=== PATIENT | female | born 1990 | race Caucasian/White ===

== ENCOUNTER 2018-10-28 07:47 | Inpatient (IN) ==
[2018-10-28] MEDS ORDERED: OXYTOCIN 30 UNITS/500 ML BAG IV PRN ×2 (09:02→09:04)
[2018-10-28] MEDS: LACTATED RINGER'S 1,000 ML IV PRN ×3 (09:34→20:23)
--- NOTE | 2018-10-28 09:40 | History & Physical Report ---
Date of Service October 28, 2018 Assessment & Plan (1) Encounter for induction of labor: IUP at 41 weeks for Induction of labor for post term will begin pitocin induction patient would like epidural analgesia when painful. anticipate vaginal . Present on Admission?: Yes History of Present Illness Primary Care Provider: NO PCP Patient is a 28 yo white female EDC 10/20/18 who presents for IOL because of post term . she ahs been having some tightening but no contractions yet. no bloody show. GBS (-) otherwise complicated by hypothyroidism. Allergies Allergy/AdvReac Type Severity Reaction Status Date / Time No Known Allergies Allergy Unverified 11/21/11 23:20 Home Medications Home Medications Medication Instructions Recorded Confirmed Type PNV cmb#95-ferrous fumarate-FA 1 tab PO DAILY 10/28/18 10/28/18 History [] levothyroxine 25 mcg PO DAILY 10/28/18 10/28/18 History Patient History Medical History History of tooth extraction Hypothyroidism ~2009 diagnosed Kidney stones passed (only once) Family History Grandmother (Maternal) Family history of diabetes mellitus Father Hypertension Mother Hypertension Grandmother (Paternal) Cancer Social History Preferred Language: Tajik Communication Ability: Effective Beliefs That Will Affect Care: None marital status: Current Living Situation: Spouse Other Information That Helps Us Care for You: No Feels Safe at Home: Yes Safety Concerns: Feels Safe At This Time Smoking Status: Never smoker Hx Alcohol Use: No Hx Substance Use: No Review of Systems All systems reviewed & are unremarkable except as noted in HPI & below Physical Exam Constitutional: WD/WN, vitals as above Respiratory: normal respiratory effort, lungs clear to auscultation Cardiovascular: RRR, no murmur, no edema Gastrointestinal (Abdomen): normal bowel sounds, soft, nontender, no hepatosplenomegaly Musculoskeletal: no cyanosis or clubbing, extremities motor strength 5/5 no calf tenderness Genitourinary: OB Exam Abdomen: + vertex, + estimated weight (8-9 pounds) and + regular contractions (every 3 minutes) Manual OB Exam: + cervical dilation 4 cm, + cervical effacement 90% and + station -1 OB Exam Monitor Tracing: + external FHT monitor used, + category I and + normal FHT vari ability Results & Data Vital Signs (Past 12 Hours) Vital Signs Temp Pulse Resp BP 10/28/18 08:56 36.8 C 85 18 140/76
[2018-10-28 09:42] LABS: Hematocrit (blood only) 39.1 % (37-47); Hemoglobin 13.3 g/dL (12.0-16.0); Mean Corpuscular Volume 86.9 fL (80-100); Mean Platelet Volume 9.7 fL (7.4-10.4); Platelet Count 202 K/uL (130-400); RDW Coefficient of Variation 15.5 % (11.5-14.5); RDW Standard Deviation 48.5 fL (36.4-46.3); White Blood Count 10.76 K/uL (4.8-10.8)
[2018-10-28] MEDS ORDERED: BUPIVACAINE 0.25% 30 ML VIAL ONE (14:06)
[2018-10-28] MEDS ORDERED: ePHEDrine sulfate 50 MG/ML AMP ONE (14:06)
[2018-10-28] MEDS ORDERED: fentaNYL citrate 100 MCG/2 ML VIAL ONE (14:07)
[2018-10-28] MEDS ORDERED: fentaNYL 2MCG/ML ROPIV 1.25MG/ML 100 ML BAG EPI ONE (14:07)
[2018-10-28] MEDS ORDERED: ePHEDrine sulfate 50 MG/ML AMP IV PRN (15:13)
[2018-10-28] MEDS ORDERED: NALBUPHINE HCL INJ 10 MG/ML AMP IV PRN (15:13)
[2018-10-28] MEDS ORDERED: NALOXONE HCL 0.4 MG/1 ML VIAL/CARP IV PRN (15:13)
[2018-10-28] MEDS ORDERED: ONDANSETRON INJ 2 MG/ML 2 ML VIAL IV PRN (15:13)
[2018-10-28] MEDS ORDERED: PROMETHAZINE HCL 6.25 MG in SODIUM CHLORIDE 0.9% 50 ML IV PRN (15:13)
[2018-10-28] MEDS ORDERED: NALOXONE HCL 1 MG in SODIUM CHLORIDE 0.9% 1000ML 1,000 ML IV PRN (15:13)
[2018-10-28] MEDS ORDERED: fentaNYL 2MCG/ML ROPIV 1.25MG/ML 100 ML BAG EPI PRN (15:13)
[2018-10-28] MEDS ORDERED: DiphenhydrAMINE HCL 50 MG/ML VIAL IV PRN (15:13)
--- NOTE | 2018-10-28 15:13 | Anesthesiology Consultation ---
Date of Service October 28, 2018 Assessment & Plan (1) Encounter for pre-operative examination: Chart Review Chart Review: Patient NOT seen in Pre Admission Testing and Acceptable Risk for Labor Epidural Consults Requested none ASA ASA2 Proposed Anesthesia Anesthesia Type: Labor Epidural Risk / Benefits Reviewed With: PT / POA / Parent / Guardian, Accepts Plan and Informed Consent Obtained History Height/Weight Height: 5 ft 5 in Weight: 116.573 kg Allergies Allergy/AdvReac Type Severity Reaction Status Date / Time sumatriptan [From Imitrex] AdvReac Gastrointestinal Verified 10/28/18 12:44 Upset Medications Home Medications Medication Instructions Recorded Confirmed Last Taken PNV cmb#95-ferrous fumarate-FA 1 tab PO DAILY 10/28/18 10/28/18 10/27/18 22:00 [] levothyroxine 25 mcg PO DAILY 10/28/18 10/28/18 10/28/18 0130 Active Medications Generic Name Dose Route Start Last Admin Trade Name Freq PRN Reason Stop Dose Admin Lactated Ringer's 1,000 mls @ 125 mls/hr 10/28/18 09:02 10/28/18 14:33 Lr IV 10/30/18 09:01 125 mls/hr .Q8H PRN Infusion L&D Protocol Protocol Oxytocin 30 units in 500 mls @ 7 mls/hr 10/28/18 09:04 10/28/18 12:50 Pitocin IV 10/30/18 09:03 0.42 units/hr .Q24H PRN 7 mls/hr Labor Induction/Augmentation Titration Protocol 0.42 UNITS/HR NPO Date Last Intake of Fluids: 10/28/18 Time Last Intake of Fluids: 13:00 Date Last Intake of Solids: 10/28/18 Time Last Intake of Solids: 06:00 Past Medical History Medical History History of tooth extraction Hypothyroidism ~2009 diagnosed Kidney stones passed (only once) Exercise / Class Metabolic Activity II 4-5 Yardwork/Stairs/Walk up hill Past Family History Family History Grandmother (Maternal) Family history of diabetes mellitus Father Hypertension Mother Hypertension Grandmother (Paternal) Cancer Past Anesthesia History No Hx of Anesthesia Complications and No Family Hx of Anesthesia Complications History of PONV No Hx of PONV and No Hx of Motion Sickness Social History Smoking Status: Never smoker Hx Alcohol Use: No Hx Substance Use: No substance use type: does not use Physical Exam Vital Signs Last Vital Signs Temp 36.8 C 10/28/18 14:45 Pulse 84 10/28/18 15:11 Resp 20 10/28/18 14:45 BP 128/62 10/28/18 15:11 Pulse Ox 97 10/28/18 15:08 ENMT Mouth: no dentition abnormality Thyromental Distance: > or= 3.5 Finger Breadths Mallampati Class: II Neck normal visual inspection Respiratory normal respiratory effort Auscultation: lungs clear to auscultation bilaterally Cardiovascular Rate/Rhythm: regular rate and regular rhythm Psychiatric Orientation: alert Testing Laboratory Results 10/28/18 09:21
--- NOTE | 2018-10-29 04:11 | Anesthesiology Progress Note ---
Date of Service October 29, 2018 Subjective Failed vacuum delivery by OB. Epidural working well. Discussed dosing epidural for planned emergent c section and patient agrees to this plan. Physical Exam Vital Signs: Last Vital Signs Temp 36.8 C 10/28/18 20:59 Pulse 94 H 10/29/18 04:07 Resp 18 10/28/18 22:30 BP 164/67 H 10/29/18 03:55 Pulse Ox 98 10/29/18 04:07 Results & Data Medications Administered Lactated Ringer's (Lr) 1,000 mls @ 125 mls/hr IV .Q8H PRN; Protocol PRN Reason: L&D Protocol Stop: 10/30/18 09:01 Last Admin: 10/28/18 20:23 Dose: 125 mls/hr Documented by: [id number] Infusion: 10/28/18 20:02 Dose: 125 mls/hr Documented by: [id number] Infusion: 10/28/18 19:28 Dose: 125 mls/hr Documented by: [id number] Infusion: 10/28/18 14:33 Dose: 125 mls/hr Documented by: [id number] Admin: 10/28/18 14:14 Dose: 999 mls/hr Documented by: [id number] Infusion: 10/28/18 14:12 Dose: 125 mls/hr Documented by: [id number] Infusion: 10/28/18 10:03 Dose: 125 mls/hr Documented by: [id number] Admin: 10/28/18 09:34 Dose: 999 mls/hr Documented by: [id number] Oxytocin (Pitocin) 30 units in 500 mls @ 20 mls/hr IV .Q24H PRN; Protocol PRN Reason: Labor Induction/Augmentation Stop: 10/30/18 09:03 Last Titration: 10/28/18 21:06 Dose: 1.2 units/hr, 20 mls/hr Documented by: [id number] Titration: 10/28/18 19:45 Dose: 1.14 units/hr, 19 mls/hr Documented by: [id number] Titration: 10/28/18 19:29 Dose: 1.02 units/hr, 17 mls/hr Documented by: [id number] Titration: 10/28/18 19:07 Dose: 1.02 units/hr, 17 mls/hr Documented by: [id number] Titration: 10/28/18 18:20 Dose: 0.9 units/hr, 15 mls/hr Documented by: [id number] Titration: 10/28/18 17:47 Dose: 0.78 units/hr, 13 mls/hr Documented by: [id number] Titration: 10/28/18 17:12 Dose: 0.66 units/hr, 11 mls/hr Documented by: [id number] Titration: 10/28/18 16:34 Dose: 0.54 units/hr, 9 mls/hr Documented by: [id number] Titration: 10/28/18 12:50 Dose: 0.42 units/hr, 7 mls/hr Documented by: [id number] Titration: 10/28/18 11:48 Dose: 0.3 units/hr, 5 mls/hr Documented by: [id number] Titration: 10/28/18 11:12 Dose: 0.18 units/hr, 3 mls/hr Documented by: [id number] Admin: 10/28/18 10:35 Dose: 0.06 units/hr, 1 mls/hr Documented by: [id number] Cosigned by: [id number]
[2018-10-29] MEDS ORDERED: CITRIC ACID/SODIUM CITRATE 15 ML UDC PO ONE (04:15)
[2018-10-29] MEDS ORDERED: CEFAZOLIN 3000MG 65 ML IV ONE (04:15)
[2018-10-29] MEDS ORDERED: LACTATED RINGER'S 1,000 ML IV SCH ×3 (04:15→06:00)
[2018-10-29] MEDS ORDERED: MoRPHine SULFATE PF 1 MG/ML 10 ML AMP/VIAL ONE (04:47)
[2018-10-29] MEDS ORDERED: OXYTOCIN 10 UNITS/ML VIAL ONE (04:59)
[2018-10-29] MEDS ORDERED: CEFAZOLIN 250 MG/ML 1 GM VIAL ONE (04:59)
[2018-10-29] MEDS ORDERED: KETOROLAC 30 MG/ML VIAL ONE (04:59)
[2018-10-29 05:16] LABS: Base Excess Cord Arterial Bld -4.5 mEq/L (-9-1.8); CO2 Cord Arterial Blood 51 mmHg (39.1-73.5); Cord Venous Blood HCO3 21 mmol/L (18.4-26.8); Cord Venous Blood PCO2 43 mmHg (30.4-57.2); Cord Venous Blood PO2 20 mmHg (14.1-43.3); Cord Venous Blood pH 7.31 (7.20-7.44); HCO3 Cord Arterial Blood 23 mmol/L (19.7-28.5); pH Cord Arterial Blood 7.27 (7.1-7.38)
[2018-10-29 05:17] LABS: Oxygen Sat Cord Arterial Blood < 60.0 % (<60)
[2018-10-29 05:18] LABS: O2 Saturation Cord Venous Bld < 60.0 % (<68)
[2018-10-29] MEDS ORDERED: ONDANSETRON INJ 2 MG/ML 2 ML VIAL ONE (05:25)
--- NOTE | 2018-10-29 05:38 | Post Operative Brief Note ---
Immediate Post Op Note v1 Date of Surgery October 29, 2018 Pre & Post Diagnosis Operation Date: 10/29/18 04:15 Pre-Op Diagnosis: Arrest of descent, Failed Vacuum Post-Op Diagnosis: same as preop- delivery of viable male 9 lbs 15 ozs Procedure Operation Date: 10/29/18 04:15 Actual Procedures p Section in LD - Anh Anderson MD, FACOG Surgeon Anh Anderson MD, FACOG Master In [employer] Sara Alvarado RN Estimated Blood Loss 500 Findings Consistent with Post-Op Diagnosis
[2018-10-29] MEDS: OXYTOCIN 20 UNITS in LACTATED RINGER'S 1,000 ML IV SCH ×3 (05:50→19:56)
[2018-10-29] MEDS ORDERED: MAGNESIUM HYDROXIDE SUSP 30 ML UDC PO PRN (05:55)
[2018-10-29] MEDS ORDERED: ONDANSETRON INJ 2 MG/ML 2 ML VIAL IV PRN ×2 (05:55→23:54)
[2018-10-29] MEDS ORDERED: MoRPHine SULFATE PF 1 MG/ML 10 ML AMP/VIAL INT SPINAL ONE (05:55)
[2018-10-29] MEDS ORDERED: DIPHTHERIA/TETANUS/PERTUSSIS 0.5 ML SYR/VIAL IM ONE (05:55)
[2018-10-29] MEDS ORDERED: DiphenhydrAMINE HCL 50 MG/ML VIAL IV PRN ×3 (05:55→23:55)
[2018-10-29] MEDS ORDERED: PROMETHAZINE HCL 6.25 MG in SODIUM CHLORIDE 0.9% 50 ML IV PRN (05:55)
[2018-10-29] MEDS ORDERED: HYDROCORTISONE ACETATE 25 MG SUPP PR PRN (05:55)
[2018-10-29] MEDS ORDERED: HYDROmorphone INJ 0.5 MG/0.5 ML SYR IV PRN (05:55)
[2018-10-29] MEDS ORDERED: LACTATED RINGER'S 500 ML IV PRN (05:55)
[2018-10-29] MEDS ORDERED: SUPERCREAM 0.870% 15 GM JAR EXT PRN (05:55)
[2018-10-29] MEDS ORDERED: SENNA 8.6 MG TAB PO PRN (05:55)
[2018-10-29] MEDS ORDERED: MoRPHine SULFATE 2 MG/ML CARP IV PRN (05:55)
[2018-10-29] MEDS ORDERED: NALOXONE HCL 0.4 MG/1 ML VIAL/CARP IV PRN (05:55)
[2018-10-29] MEDS ORDERED: ePHEDrine sulfate 50 MG/ML AMP IV PRN (05:55)
[2018-10-29] MEDS ORDERED: NALOXONE HCL 0.08 MG in SYRINGE 1.8 ML IV PRN (05:55)
[2018-10-29] MEDS ORDERED: NALOXONE HCL 1 MG in SODIUM CHLORIDE 0.9% 1000ML 1,000 ML IV PRN (05:55)
[2018-10-29] MEDS ORDERED: NALBUPHINE HCL INJ 10 MG/ML AMP IV PRN (05:55)
[2018-10-29] MEDS ORDERED: MEPERIDINE HCL 25 MG/ML CARP IV PRN (05:55)
[2018-10-29] MEDS ORDERED: BENZOCAINE 20% AER SPR 82.5 GM CAN EXT PRN (05:55)
[2018-10-29] MEDS ORDERED: KETOROLAC 30 MG/ML VIAL IV PRN ×2 (05:55→23:54)
--- NOTE | 2018-10-29 05:57 | Anesthesiology Progress Note ---
Date of Service October 29, 2018 Anesthesia Post Procedure Vital Signs Vital Signs: Temp Pulse Resp BP Pulse Ox 10/29/18 05:53 80 96 10/29/18 05:51 81 118/58 L 10/29/18 05:48 80 95 10/29/18 05:46 84 121/57 L 10/29/18 04:12 95 H 97 10/29/18 04:09 89 142/67 H 10/29/18 04:07 94 H 98 10/29/18 04:02 95 H 98 10/29/18 03:57 103 H 98 10/29/18 03:55 109 H 164/67 H 10/29/18 03:52 111 H 98 10/29/18 03:47 89 98 10/29/18 03:42 97 H 174/128 H 97 10/29/18 03:39 106 H 158/76 H 10/29/18 03:37 115 H 97 10/29/18 03:35 18 10/29/18 03:32 87 97 10/29/18 03:27 88 97 10/29/18 03:26 85 159/74 H 10/29/18 03:22 98 H 97 10/29/18 03:17 133 H 98 10/29/18 03:12 78 97 10/29/18 03:10 95 H 157/89 H 10/29/18 03:07 83 97 10/29/18 03:02 83 97 10/29/18 02:57 141 H 97 10/29/18 02:55 100 H 188/91 H 10/29/18 02:52 102 H 98 10/29/18 02:47 97 H 97 10/29/18 02:42 118 H 97 10/29/18 02:40 111 H 167/80 H 10/29/18 02:37 97 H 97 10/29/18 02:32 115 H 97 10/29/18 02:30 37.2 C 18 10/29/18 02:27 95 H 97 10/29/18 02:25 100 H 121/70 10/29/18 02:22 113 H 97 10/29/18 02:17 119 H 97 10/29/18 02:12 149 H 98 10/29/18 02:11 107 H 161/72 H 10/29/18 02:10 110 H 91 10/29/18 02:07 158 H 98 10/29/18 02:02 101 H 99 10/29/18 01:57 142 H 98 10/29/18 01:55 133 H 148/82 H 10/29/18 01:52 137 H 96 10/29/18 01:40 131 H 115/77 10/29/18 01:35 89 98 10/29/18 01:30 85 99 10/29/18 01:25 95 H 99 10/29/18 01:24 96 H 133/68 10/29/18 01:20 139 H 99 10/29/18 01:15 106 H 98 10/29/18 01:11 80 137/67 10/29/18 01:10 86 98 10/29/18 01:05 78 98 10/29/18 01:00 37.8 C H 76 18 98 10/29/18 00:57 89 136/63 10/29/18 00:55 99 H 98 10/29/18 00:50 86 96 10/29/18 00:45 86 96 10/29/18 00:40 137 H 96 10/29/18 00:39 86 142/78 H 10/29/18 00:35 107 H 96 10/29/18 00:30 111 H 97 10/29/18 00:25 123 H 143/78 H 97 10/29/18 00:20 95 H 94 10/29/18 00:15 105 H 95 10/29/18 00:12 95 H 94 10/29/18 00:10 97 H 95 10/29/18 00:09 97 H 135/73 10/29/18 00:05 93 H 95 10/29/18 00:00 100 H 96 10/28/18 23:58 93 H 94 10/28/18 23:55 104 H 136/75 95 10/28/18 23:50 92 H 95 10/28/18 23:45 92 H 94 10/28/18 23:40 93 H 128/67 97 10/28/18 23:35 89 96 10/28/18 23:30 92 H 95 10/28/18 23:25 89 97 10/28/18 23:24 95 H 134/73 10/28/18 23:20 86 95 10/28/18 23:15 84 96 10/28/18 23:10 90 139/72 97 10/28/18 23:05 85 97 10/28/18 23:00 37.5 C 87 18 96 10/28/18 22:56 90 141/73 H 10/28/18 22:55 91 H 97 10/28/18 22:50 87 96 10/28/18 22:45 84 97 10/28/18 22:40 91 H 132/72 96 10/28/18 22:35 88 96 10/28/18 22:30 118 H 18 97 10/28/18 22:25 84 137/72 96 10/28/18 22:20 78 95 10/28/18 22:19 83 94 10/28/18 22:15 85 96 10/28/18 22:10 80 131/71 96 10/28/18 22:05 88 96 10/28/18 22:00 91 H 96 10/28/18 21:55 84 95 10/28/18 21:54 90 131/72 10/28/18 21:50 88 95 10/28/18 21:45 83 18 94 10/28/18 21:44 81 96 10/28/18 21:40 90 129/74 10/28/18 21:39 85 96 10/28/18 21:34 84 96 10/28/18 21:29 90 96 10/28/18 21:24 91 H 132/75 96 10/28/18 21:19 86 96 10/28/18 21:14 88 96 10/28/18 21:09 90 125/71 96 10/28/18 21:04 93 H 96 10/28/18 20:59 36.8 C 93 H 18 95 10/28/18 20:55 99 H 132/75 10/28/18 20:54 104 H 98 10/28/18 20:49 104 H 97 10/28/18 20:44 103 H 97 10/28/18 20:40 103 H 131/72 10/28/18 20:39 105 H 96 10/28/18 20:34 105 H 96 10/28/18 20:33 111 H 94 10/28/18 20:29 100 H 95 10/28/18 20:28 99 H 94 10/28/18 20:24 107 H 96 10/28/18 20:19 114 H 96 10/28/18 20:14 102 H 95 10/28/18 20:11 99 H 101/60 94 10/28/18 20:08 100 H 95 10/28/18 20:05 108 H 94 10/28/18 20:03 105 H 95 10/28/18 19:59 18 10/28/18 19:58 97 H 95 10/28/18 19:55 99 H 118/59 L 10/28/18 19:53 102 H 95 10/28/18 19:48 93 H 95 10/28/18 19:43 99 H 95 10/28/18 19:40 94 H 110/58 L 10/28/18 19:38 98 H 95 10/28/18 19:33 87 95 10/28/18 19:28 89 96 10/28/18 19:25 96 H 113/63 10/28/18 19:23 93 H 96 10/28/18 19:18 95 H 96 10/28/18 19:15 36.4 C L 18 10/28/18 19:13 98 H 97 10/28/18 19:08 94 H 96 10/28/18 19:03 99 H 97 10/28/18 18:58 102 H 97 10/28/18 18:54 98 H 108/62 10/28/18 18:53 98 H 97 10/28/18 18:48 95 H 96 10/28/18 18:43 93 H 96 10/28/18 18:39 98 H 105/65 10/28/18 18:38 93 H 96 10/28/18 18:33 100 H 97 10/28/18 18:29 84 94 10/28/18 18:28 82 94 10/28/18 18:25 85 106/59 L 10/28/18 18:23 80 95 10/28/18 18:18 85 96 10/28/18 18:13 89 96 10/28/18 18:09 82 104/59 L 10/28/18 18:08 81 96 10/28/18 18:03 90 96 10/28/18 17:58 84 97 10/28/18 17:55 83 113/57 L 10/28/18 17:53 79 97 10/28/18 17:49 37.1 C 18 10/28/18 17:48 76 98 10/28/18 17:43 78 97 07/03/19 17:40 72 128/68 10/28/18 17:38 76 97 10/28/18 17:33 74 97 10/28/18 17:28 75 97 10/28/18 17:25 79 125/67 10/28/18 17:23 81 96 07 17:18 81 96 10/28/18 17:13 74 97 10/28/18 17:10 76 130/68 10/28/18 17:08 90 97 10/28/18 17:03 78 96 10/28/18 16:58 80 97 10/28/18 16:54 78 135/74 10/28/18 16:53 73 97 10/28/18 16:48 78 97 10/28/18 16:43 79 98 10/28/18 16:40 82 141/83 H 10/28/18 16:38 83 98 10/28/18 16:35 37.0 C 18 10/28/18 16:33 74 98 10/28/18 16:28 90 97 10/28/18 16:25 76 128/68 10/28/18 16:23 83 97 10/28/18 16:18 78 95 10/28/18 16:16 73 94 10/28/18 16:13 73 95 10/28/18 16:11 68 125/62 10/28/18 16:08 73 95 10/28/18 16:03 82 96 10/28/18 15:58 72 96 10/28/18 15:55 78 126/66 10/28/18 15:53 82 97 10/28/18 15:48 78 97 10/28/18 15:43 85 96 10/28/18 15:39 76 130/67 10/28/18 15:38 77 97 10/28/18 15:33 79 97 10/28/18 15:28 84 96 10/28/18 15:23 80 131/63 98 03 15:21 80 132/62 03 15:19 81 124/61 10/28/18 15:18 79 96 10/28/18 15:17 85 129/66 10/28/18 15:15 81 129/64 10/28/18 15:13 79 128/63 97 10/28/18 15:11 84 128/62 10/28/18 15:09 83 126/62 07/03/19 15:08 80 97 10/28/18 15:07 82 137/67 10/28/18 15:05 85 136/66 10/28/18 15:03 80 130/64 98 10/28/18 15:01 77 143/63 H 10/28/18 14:59 95 H 155/78 H 10/28/18 14:58 93 H 98 10/28/18 14:53 94 H 99 10/28/18 14:48 87 99 10/28/18 14:45 36.8 C 92 H 20 145/75 H 10/28/18 14:43 92 H 99 10/28/18 14:38 80 97 10/28/18 14:33 85 99 10/28/18 14:28 87 99 10/28/18 12:52 36.9 C 78 20 139/70 10/28/18 11:53 36.9 C 77 18 135/73 10/28/18 11:13 36.8 C 18 10/28/18 11:09 77 138/81 10/28/18 10:39 36.8 C 18 10/28/18 10:34 80 138/76 10/28/18 08:56 36.8 C 85 18 140/76 Transfer of Care Handoff Completed per policy Notes Mental Status: alert / awake / arousable Patient Amnestic to Procedure: Yes Nausea / Vomiting: adequately controlled Pain: adequately controlled Airway Patency, RR, SpO2: stable & adequate BP & HR: stable & adequate Hydration State: stable & adequate Neuraxial Anesthesia: was administered and sensory block is resolving Anesthetic Complications: no major complications apparent and Pt Satisfied with anesthetic care
--- NOTE | 2018-10-29 05:57 | Anesthesia Procedure Note ---
Date of Service October 29, 2018 Anesthesia Post Epidural Note Vital Signs Vital Signs: Temp Pulse Resp BP Pulse Ox 37.2 C 80 18 118/58 L 96 10/29/18 02:30 10/29/18 05:53 10/29/18 03:35 10/29/18 05:51 10/29/18 05:53 Notes Mental Status: alert / awake / arousable Nausea / Vomiting: adequately controlled Pain: adequately controlled Airway Patency, RR, SpO2: stable & adequate BP & HR: stable & adequate Hydration State: stable & adequate Neuraxial Anesthesia: was administered and sensory block is resolving Anesthetic Complications: no major complications apparent and Pt Satisfied with anesthetic care Epidural: Removed without complications and With tip intact
[2018-10-29] MEDS ORDERED: ACETAMINOPHEN 325 MG TAB PO PRN (05:59)
[2018-10-29] MEDS ORDERED: SODIUM CHLORIDE 0.9% 1000ML 1,000 ML IV SCH (06:00)
[2018-10-29] MEDS ORDERED: DC INTRASPINAL MORPHINE SCH (06:00)
[2018-10-29] MEDS ORDERED: NO NARCOTICS OR SEDATIVES SCH (06:00)
[2018-10-29] MEDS: LEVOTHYROXINE SODIUM 25 MCG TABLET PO SCH (07:15)
--- NOTE | 2018-10-29 07:25 | Operative Report ---
DATE OF OPERATION: 10/29/2018 SURGEON: Anh Harrison MD FLARE MAN: Sara Alvarado RN PREOPERATIVE DIAGNOSES: Intrauterine at 41 weeks for induction of labor, arrest of descent and failed vacuum. POSTOPERATIVE DIAGNOSES: Intrauterine at 41 weeks for induction of labor, arrest of descent and failed vacuum, delivery of a viable male infant, 9 pounds 15 ounces. PROCEDURE: Primary low transverse section. ANESTHESIA: Epidural. BLOOD LOSS: 500 mL. HISTORY: The patient is a 28-year-old G1, P0 white female, EDC of 10/20/2018 who presented for induction of labor because of post-term . She was 4 cm on arrival in labor and delivery and then spontaneously ruptured membranes as well. Pitocin augmentation of her labor was begun. An IUPC was placed to further gauge the strength of her contractions. She did progress to full dilation and pushed through exhaustion over 3 hours and brought the vertex to +2 present and then to +3 station with caput. A vacuum was attempted through 4 contractions with 3 pop-offs. The vertex did not descend any further with the vacuum attempt and a decision was made to proceed with a primary section instead because of arrest of descent. The patient and her were agreeable to this and all questions were answered to their satisfaction before proceeding. GROSS FINDINGS: Uterus is gravid and consistent with a term in size. Bilateral ovaries and fallopian tubes are grossly normal. The presenting part was in an OA presentation with significant molding. DESCRIPTION OF PROCEDURE: After the patient received adequate epidural anesthesia, she was prepped and draped in usual sterile fashion. A low transverse skin incision was made with the scalpel and carried to the fascia with the same scalpel. The fascial incision was then extended with Jackson scissors. The underlying rectus muscles were divided along the midline bluntly and the underlying peritoneum elevated and entered bluntly. The bladder was then taken down off the anterior surface of the uterus and placed behind the bladder blade. The low uterine segment was entered with the scalpel and extended transversely. There was thick meconium upon entering the uterine cavity. The was delivered from the vertex presentation and brought to the incision before moderate fundal pressure was used to deliver the rest of the . The cord was clamped and cut. The was handed off to Dr. Merida who was in attendance as wafer polishing lead worker. There was vigorous crying and the infant was moving all 4 limbs at that point. The placenta was then manually removed and the uterus exteriorized and covered with a clean lap sponge. The uterine cavity was explored and found to be free of any placental tissue or membranes. The uterus was closed in 2 layers in a running locking imbricating fashion. Hemostasis was noted to be excellent at the incision. The posterior cul-de-sac was irrigated with normal saline as was the anterior cul-de-sac. The uterus was then placed back in the abdominal cavity. The gutters were explored and found to be free of any clot or fluid. The incision was examined once more and continued to have excellent hemostasis. The rectus muscles were brought together on the midline with individual stitches of 0 Monocryl. The fascia was closed in a running fashion with 0 Vicryl. Skin edges were reapproximated using a 4-0 Vicryl in a subcuticular fashion. The adipose layer was irrigated prior to closing the skin. Urine was concentrated, but clear at the end of the case. Mother and are doing well after the delivery. I attest to the content of the Intraoperative Record and any orders documented therein. Any exception s are noted below.
[2018-10-29] MEDS ORDERED: LACTATED RINGER'S 500 ML IV ONE (08:11)
[2018-10-29] MEDS: SIMETHICONE 80 MG CHEW PO SCH ×2 (17:16→20:29)
[2018-10-29] MEDS: DOCUSATE SODIUM 100 MG CAP PO SCH (20:28)
[2018-10-29] MEDS ORDERED: MEPERIDINE HCL 50 MG/ML CARP IV PRN (23:54)
[2018-10-29] MEDS ORDERED: ZOLPIDEM TARTRATE 5 MG TAB PO PRN (23:54)
[2018-10-29] MEDS ORDERED: PROMETHAZINE HCL 25 MG in SODIUM CHLORIDE 0.9% 50 ML IV PRN (23:54)
[2018-10-30] MEDS: LEVOTHYROXINE SODIUM 25 MCG TABLET PO SCH (06:25)
--- NOTE | 2018-10-30 07:20 | Anesthesiology Progress Note ---
Date of Service October 30, 2018 Anesthesia Post Procedure Vital Signs Vital Signs: Temp Pulse Pulse Pulse Resp BP BP 10/30/18 03:50 36.7 C 80 20 106/66 10/30/18 02:25 20 10/30/18 01:22 20 10/30/18 00:05 20 10/29/18 23:50 36.9 C 87 20 116/71 10/29/18 23:15 18 10/29/18 22:15 16 10/29/18 21:15 16 10/29/18 20:15 17 10/29/18 20:05 36.9 C 100 H 17 119/70 10/29/18 19:15 15 10/29/18 18:15 17 10/29/18 17:15 15 10/29/18 17:00 36.7 C 98 H 16 120/72 10/29/18 16:15 16 10/29/18 15:15 15 10/29/18 14:15 18 10/29/18 13:15 18 10/29/18 12:01 37.0 C 20 10/29/18 12:00 36.9 C 110 H 18 111/66 10/29/18 11:44 108 H 131/61 10/29/18 11:43 111 H 10/29/18 11:38 115 H 10/29/18 11:33 116 H 10/29/18 11:28 112 H 10/29/18 11:23 108 H 10/29/18 11:18 112 H 10/29/18 11:13 124 H 10/29/18 11:08 117 H 10/29/18 11:03 119 H 10/29/18 10:58 112 H 10/29/18 10:53 127 H 10/29/18 10:50 20 10/29/18 10:48 117 H 10/29/18 10:43 116 H 10/29/18 10:38 115 H 10/29/18 10:33 112 H 10/29/18 10:28 97 H 10/29/18 10:23 121 H 10/29/18 10:18 106 H 10/29/18 10:13 99 H 10/29/18 10:08 99 H 10/29/18 10:03 92 H 10/29/18 09:58 112 H 10/29/18 09:55 92 H 10/29/18 09:53 103 H 10/29/18 09:50 36.9 C 20 10/29/18 09:49 97 H 10/29/18 09:48 98 H 10/29/18 09:43 105 H 10/29/18 09:38 105 H 10/29/18 09:33 98 H 10/29/18 09:28 102 H 131/68 10/29/18 09:23 95 H 10/29/18 09:20 96 H 10/29/18 09:18 99 H 10/29/18 09:13 98 H 10/29/18 09:08 108 H 10/29/18 09:03 114 H 10/29/18 08:58 107 H 10/29/18 08:53 108 H 10/29/18 08:49 113 H 141/76 H 10/29/18 08:48 115 H 10/29/18 08:45 108 H 10/29/18 08:43 107 H 10/29/18 08:40 79 10/29/18 08:38 76 10/29/18 08:35 77 10/29/18 08:33 82 10/29/18 08:29 79 10/29/18 08:28 76 10/29/18 08:23 75 10/29/18 08:18 86 10/29/18 08:13 84 10/29/18 08:08 86 10/29/18 08:03 92 H 10/29/18 08:02 86 133/59 L 10/29/18 07:58 87 10/29/18 07:53 84 10/29/18 07:52 82 132/62 10/29/18 07:50 36.6 C 20 10/29/18 07:48 88 10/29/18 07:43 103 H 10/29/18 07:42 105 H 144/69 H 10/29/18 07:39 92 H 10/29/18 07:38 96 H 10/29/18 07:33 84 10/29/18 07:32 86 122/56 L 10/29/18 07:28 97 H 10/29/18 07:23 87 10/29/18 07:22 88 131/63 10/29/18 07:20 20 Pulse Ox 10/30/18 03:50 96 10/30/18 02:25 97 10/30/18 01:22 93 10/30/18 00:05 93 10/29/18 23:50 93 10/29/18 23:15 94 10/29/18 22:15 100 10/29/18 21:15 99 10/29/18 20:15 97 10/29/18 20:05 95 10/29/18 19:15 98 10/29/18 18:15 99 10/29/18 17:15 97 10/29/18 17:00 98 10/29/18 16:15 98 10/29/18 15:15 99 10/29/18 14:15 93 10/29/18 13:15 93 10/29/18 12:01 10/29/18 12:00 94 10/29/18 11:44 10/29/18 11:43 95 10/29/18 11:38 95 10/29/18 11:33 95 10/29/18 11:28 95 10/29/18 11:23 95 10/29/18 11:18 94 10/29/18 11:13 96 10/29/18 11:08 95 10/29/18 11:03 94 10/29/18 10:58 95 10/29/18 10:53 10/29/18 10:50 10/29/18 10:48 95 10/29/18 10:43 95 10/29/18 10:38 95 10/29/18 10:33 96 10/29/18 10:28 96 10/29/18 10:23 96 10/29/18 10:18 95 10/29/18 10:13 95 10/29/18 10:08 95 10/29/18 10:03 95 10/29/18 09:58 93 10/29/18 09:55 94 10/29/18 09:53 95 10/29/18 09:50 10/29/18 09:49 94 10/29/18 09:48 95 10/29/18 09:43 94 10/29/18 09:38 94 10/29/18 09:33 94 10/29/18 09:28 94 10/29/18 09:23 94 10/29/18 09:20 94 10/29/18 09:18 96 10/29/18 09:13 94 10/29/18 09:08 95 10/29/18 09:03 96 10/29/18 08:58 95 10/29/18 08:53 96 10/29/18 08:49 10/29/18 08:48 96 10/29/18 08:45 94 10/29/18 08:43 97 10/29/18 08:40 94 10/29/18 08:38 95 10/29/18 08:35 94 10/29/18 08:33 94 10/29/18 08:29 94 10/29/18 08:28 95 10/29/18 08:23 95 10/29/18 08:18 96 10/29/18 08:13 96 10/29/18 08:08 96 10/29/18 08:03 97 10/29/18 08:02 10/29/18 07:58 94 10/29/18 07:53 96 10/29/18 07:52 10/29/18 07:50 10/29/18 07:48 96 10/29/18 07:43 95 10/29/18 07:42 10/29/18 07:39 94 10/29/18 07:38 98 10/29/18 07:33 96 10/29/18 07:32 10/29/18 07:28 96 10/29/18 07:23 96 10/29/18 07:22 10/29/18 07:20 Pain Intensity Bilateral Abdomen: Pain Intensity: 2 Transfer of Care Handoff Completed per policy Notes Mental Status: alert / awake / arousable Patient Amnestic to Procedure: Yes Nausea / Vomiting: adequately controlled Pain: adequately controlled Airway Patency, RR, SpO2: stable & adequate BP & HR: stable & adequate Hydration State: stable & adequate Neuraxial Anesthesia: was administered and sensory block resolved Anesthetic Complications: no major complications apparent and Pt Satisfied with anesthetic care
[2018-10-30 07:42] LABS: Basophils # (auto) 0.01 K/uL (0-0.2); Basophils % (auto) 0.1 %; Eosinophils # (auto) 0.08 K/uL (0-0.5); Eosinophils % (auto) 0.5 %; Hematocrit (blood only) 30.9 % (37-47); Hemoglobin 10.6 g/dL (12.0-16.0); Immature Granulocytes # (auto) 0.18 K/uL (0.00-0.02); Immature Granulocytes % (auto) 1.2 %; Lymphocytes # (auto) 1.31 K/uL (1.2-3.4); Lymphocytes % (auto) 8.9 %; Mean Corpuscular Hgb Conc 34.3 g/dL (32-36); Mean Corpuscular Volume 87.3 fL (80-100); Mean Platelet Volume 9.1 fL (7.4-10.4); Monocytes # (auto) 1.03 K/uL (0.11-0.59); Neutrophils # (auto) 12.03 K/uL (1.4-6.5); Neutrophils % (auto) 82.3 %; Platelet Count 194 K/uL (130-400); RDW Coefficient of Variation 15.9 % (11.5-14.5); RDW Standard Deviation 50.5 fL (36.4-46.3); Red Blood Count 3.54 M/uL (4.2-5.4); White Blood Count 14.64 K/uL (4.8-10.8)
--- NOTE | 2018-10-30 08:20 | Obstetrical Progress Note ---
Date of Service October 30, 2018 Assessment & Plan (1) Delivery by section: routine pp care. eating regular diet, await spont void. pain meds. will ambulate in halls. hgb noted at 10. follow bleeding. Subjective doing well this am, +flatus, no n/v, no sob/cp. . pain well controlled. Physical Exam Constitutional: WD/WN, vitals as above Respiratory: normal respiratory effort, lungs clear to auscultation Cardiovascular: Rate/Rhythm: regular rate and regular rhythm Gastrointestinal (Abdomen): soft ff 2 down, appropriately tender. incision c/d/i Musculoskeletal: nt calves Neurologic: grossly normal. Results & Data Vital Signs (Past 12 Hours) Vital Signs Temp Pulse Resp BP Pulse Ox 10/30/18 03:50 36.7 C 80 20 106/66 96 10/30/18 02:25 20 97 10/30/18 01:22 20 93 10/30/18 00:05 20 93 10/29/18 23:50 36.9 C 87 20 116/71 93 10/29/18 23:15 18 94 10/29/18 22:15 16 100 10/29/18 21:15 16 99
[2018-10-30] MEDS: DOCUSATE SODIUM 100 MG CAP PO SCH ×2 (08:44→20:05)
[2018-10-30] MEDS: SIMETHICONE 80 MG CHEW PO SCH ×3 (08:44→20:06)
[2018-10-30] MEDS: FERROUS SULFATE 325 MG TAB PO SCH (08:44)
[2018-10-30] MEDS: PRENATAL VITAMIN 1 TAB PO SCH (08:45)
[2018-10-30] MEDS: OXYCODONE/ACETAMINOPHEN 5mg/325mg TAB PO PRN ×3 (08:45→20:06)
[2018-10-30] MEDS ORDERED: Nursing to Pharmacy Communication ONE (17:56)
[2018-10-30] MEDS ORDERED: BISACODYL 5 MG TABEC PO SCH (20:00)
[2018-10-30] MEDS: IBUPROFEN 600 MG TAB PO PRN (20:06)
[2018-10-31] MEDS: IBUPROFEN 600 MG TAB PO PRN ×6 (00:33→20:13)
[2018-10-31] MEDS: OXYCODONE/ACETAMINOPHEN 5mg/325mg TAB PO PRN ×6 (00:34→20:14)
[2018-10-31] MEDS: LEVOTHYROXINE SODIUM 25 MCG TABLET PO SCH (04:48)
[2018-10-31] MEDS ORDERED: BISACODYL 10 MG SUPP PR PRN (05:55)
[2018-10-31 06:31] LABS: Hemoglobin 9.4 g/dL (12.0-16.0)
--- NOTE | 2018-10-31 06:52 | Obstetrical Progress Note ---
Date of Service October 31, 2018 Assessment & Plan (1) Delivery by section: routine postop care Present on Admission?: No Subjective Ambulation: ambulating normally Voiding: no voiding problems Passing Gas:: Yes Diet Tolerance:: regular diet Lochia:: Small Feeding Type:: breast feeding Current Pain Level(1-10): 0 Physical Exam Constitutional WD/WN, vitals as above Eyes PERRL, conjunctivae normal, anicteric sclerae ENMT external ear and nose normal, oropharynx normal Neck trachea midline, no thyromegaly Respiratory normal respiratory effort and able to speak in complete sentences; no respiratory distress, no labored breathing and does not use accessory muscles Cardiovascular Rate/Rhythm: regular rate and regular rhythm Extremities: no calf tenderness and no pedal edema Chest (Breasts) Breast: normal inspection of breasts Gastrointestinal (Abdomen) Inspection/Auscultation: abdomen normal to inspection and + abdominal surgical incision (C/d/i); abdomen not distended Musculoskeletal no cyanosis or clubbing, extremities motor strength 5/5 Skin no rashes, warm and dry Neurologic patellar DTR's 2+ bilat, sensation intact Psychiatric A+Ox3, euthymic affect Genitourinary Speculum/Bimanual Exam: uterus nontender OB Exam Abdomen: + fundal height (at umbilicus) Fundus: + firm Results & Data Vital Signs (Past 12 Hours) Vital Signs Temp Pulse Resp BP Pulse Ox 10/30/18 22:45 36.6 C 92 H 16 127/73 96 10/30/18 20:00 36.7 C 115 H 16 114/74 94
[2018-10-31] MEDS: DOCUSATE SODIUM 100 MG CAP PO SCH ×3 (08:27→20:13)
[2018-10-31] MEDS: SIMETHICONE 80 MG CHEW PO SCH ×6 (08:28→20:13)
[2018-10-31] MEDS: FERROUS SULFATE 325 MG TAB PO SCH ×2 (08:28→08:32)
[2018-10-31] MEDS: PRENATAL VITAMIN 1 TAB PO SCH ×2 (08:28→08:32)
[2018-11-01] MEDS: IBUPROFEN 600 MG TAB PO PRN ×2 (02:45→08:34)
[2018-11-01] MEDS: OXYCODONE/ACETAMINOPHEN 5mg/325mg TAB PO PRN ×2 (02:45→08:34)
[2018-11-01] MEDS: LEVOTHYROXINE SODIUM 25 MCG TABLET PO SCH (04:02)
[2018-11-01] MEDS: SIMETHICONE 80 MG CHEW PO SCH (08:28)
[2018-11-01] MEDS: FERROUS SULFATE 325 MG TAB PO SCH (08:28)
[2018-11-01] MEDS: PRENATAL VITAMIN 1 TAB PO SCH (08:28)
[2018-11-01] MEDS: DOCUSATE SODIUM 100 MG CAP PO SCH (08:28)
--- NOTE | 2018-11-01 08:59 | Obstetrical Progress Note ---
Date of Service November 01, 2018 Postop day #3 from section patient is well ambulating well having no extremity pain tolerating oral diet and pain is well controlled with oral pain medication Assessment & Plan (1) Delivery by section: Postoperative day #3 meets criteria will discharge home pain medication will include Percocet and Motrin follow-up in the office instructions reviewed Physical Exam Patient appears well abdomen is soft nontender incision is clean dry and intact extremity exam is negative Results & Data Vital Signs (Past 12 Hours) Vital Signs Temp Pulse Resp BP Pulse Ox 11/01/18 07:19 36.8 C 82 16 142/81 H 10/31/18 23:15 36.4 C L 83 16 118/75 96
--- NOTE | 2018-11-03 01:00 | Discharge Summary ---
PRINCIPAL DIAGNOSIS: Intrauterine at 41 weeks, failed induction of labor, failed vacuum. PRINCIPAL PROCEDURE: Primary low transverse section. HISTORY AND HOSPITAL COURSE: The patient is a 28-year-old G1, P0 white female, EDC of 10/20/2018, who presented for induction of labor because of post-term . She was 4 cm on arrival. Pitocin augmentation was begun. She ruptured membranes spontaneously despite progressing to full dilation and pushing for over 3 hours and an attempt at vacuum assisted delivery was unsuccessful. We proceeded to primary low transverse section for delivery of a viable male , 9 pounds 15 ounces. Her postop course was uncomplicated. She was eating regular diet on her 1st postop day. She remained afebrile throughout her hospital stay, was ambulating without difficulty and voiding without difficulty. Her pain was well controlled with oral pain medication. Hemoglobin on admission was 13.3, hematocrit 39.1. First postop day hemoglobin 10.6, hematocrit of 30.9 and second postop day hemoglobin 9.4, hematocrit of 29.0. The patient was sent home in good condition with prescriptions for Motrin 600 mg p.o. q. 6 hours p.r.n. pain, Percocet 1 tablet to 2 tablets p.o. q. 6 hours p.r.n. pain. She is to be seen in the office in 6 weeks for followup visit. She is to call for temperature of 101 degrees or higher, heavy vaginal bleeding, burning with urination, increased redness, drainage or pain in her incision, calf tenderness or any other concerns.
== END 2018-11-01 11:20 | disposition home or self-care (01) | DRG 788 ==
LOC: 4S1 07:47 → 4S2 10-29 12:08

== ENCOUNTER 2020-12-23 01:51 | Observation (INO) ==
[2020-12-23 02:16] VITALS: BP 134/65; PULSE 90
[2020-12-23] MEDS ORDERED: CALCIUM CARBONATE 500 MG CHEWABLE TAB PO ONE (02:33)
[2020-12-23] MEDS ORDERED: CALCIUM CARBONATE 500 MG CHEWABLE TAB ONE (02:35)
--- NOTE | 2020-12-23 02:41 | Obstetrical Progress Note ---
Date of Service December 23, 2020 Assessment & Plan (1) with 34 completed weeks gestation: (2) Placenta previa: (3) Bilateral upper abdominal discomfort: Plan: so far on the monitor, fetus category one and no contractions noted. Will continue to move the toco around. Patient is given the marker and when she feels her discomfort she is to edgardo to see if corresponds to anything on the toco. Suspect may be GI discomfort/dyspepsia/heartburn. Will initially trial treating with tums. Continue fluid hydrating and monitor. Ashli Epps is a 30yowf with hx of previous c/s with anterior placenta previa. She called tonight noting cramping. she describes this as upper abdomen at the top of her uterus. When she gets it she feels nauseated like she might throw up but then ends of burping. she does not note any significant discomfort or cramping in the lower uterus/abdomen although she does not that she occasionally feels like she might have to move bowels type of pressure. no vb. +fm. Patient was just in labor and delivery on 12/21 for some monitoring. she has tried tylenol for this pain but not really helps. she brings in a huge water bottle and notes she has been hydrating well. She has an app[place] [facility] [place] to discuss possible transfer of care to them because of the previa. Recent ultrasound cannot r/o morbidly adherent placenta. [place] [facility] [place] denies current vaginal bleeding of any kind. Physical Exam Constitutional: WD/WN, vitals as above Gastrointestinal (Abdomen): obese, soft, nt, gravid, no tenderness to palpation or movement of the uterus. feels soft. points to the epigastric area as where she has discomfort. Results & Data ([facility]) Vital Signs (Past 12 Hours) Vital Signs Pulse BP 12/23/20 02:15 90 134/65 PG Care Time/CCT Total # of Minutes Spent Total Time Spent with Patient: Total time spent is greater than 50% in coordination of care (as documented) at patient's floor/unit and/or counseling patient: Coding Level of Care Code None Diagnoses with 34 completed weeks gestation Z3A.34 Placenta previa O44.00 Bilateral upper abdominal discomfort R10.11; R10.12
[2020-12-23] MEDS ORDERED: FAMOTIDINE 20 MG TAB PO STA (02:44)
[2020-12-23 02:50] VITALS: TEMP 98.1
--- NOTE | 2020-12-23 07:09 | Obstetrical Progress Note ---
Date of Service December 23, 2020 Assessment & Plan (1) Bilateral upper abdominal discomfort: (2) with 34 completed weeks gestation: Plan: Patient improved. Likely dyspepsia. no evidence of labor or bleeding. Reassured . Plan d/c. Has appt with [facility] [place] on Friday. Plans on transferring care. Subjective Patient is feeling better this am. She had both tums and zantac. she also had a bm. she notes that the discomfort in her upper abdomen has improved. Notes good fm. Physical Exam Constitutional: WD/WN, vitals as above Psychiatric: A+Ox3, euthymic affect Genitourinary: cx--deferred toco--none efm--140s wtih mod variability, accels to 170s, no decels Results & Data ([place]) Vital Signs (Past 12 Hours) Vital Signs Temp Pulse Resp BP 12/23/20 02:40 36.7 C 18 12/23/20 02:15 90 134/65 PG Care Time/CCT Total # of Minutes Spent Total Time Spent with Patient: Total time spent is greater than 50% in coordination of care (as documented) at patient's floor/unit and/or counseling patient: Coding Level of Care Code 95581 Subseq Hosp Care Lvl 1 Diagnoses Bilateral upper abdominal discomfort R10.11; R10.12 with 34 completed weeks gestation Z3A.34
== END 2020-12-23 07:38 | disposition home or self-care (01) ==
LOC: 4S1 01:51 → OPB 01:51 → 4S1 01:55
DX: R10.12 Left upper quadrant pain; R10.11 Right upper quadrant pain; Z3A.34 34 weeks gestation of pregnancy; O44.00 Complete placenta previa NOS or without hemorrhage, unspecified trimester

== ENCOUNTER 2024-10-21 05:29 | Inpatient (IN) ==
--- NOTE | 2024-10-13 11:48 | Anesthesiology Consultation ---
Date of Service October 13, 2024 Assessment & Plan (1) Encounter for pre-operative examination: - Per food and beverage outlets manager on 10/13/24: No known infectious disease contacts, current infectious disease symptoms in past 10 days or COVID positive test result in the past 30 days. Chart Review Chart Review: administrative assistant data entry initiated History Surgery Operation Date: 10/21/24 07:30 Proposed Procedures p Section (Delivery of Baby Through Abdominal Incision) - Anh Anderson MD, FACOG Height/Weight Height: 5 ft 4 in Weight: 127.913 kg Allergies Allergy/AdvReac Type Severity Reaction Status Date / Time sumatriptan [From Imitrex] AdvReac Intermediate Gastrointestinal Verified 10/13/24 10:42 Upset Medications Home Medications Medication Instructions Recorded Confirmed Last Taken 21-iron fu-folic acid 1 tab PO DAILY 03/29/24 10/13/24 Unknown [ Complete] acetone (urine) test (Ketone Urine #50 ea 04/16/24 10/08/24 Unknown Test strips) blood sugar diagnostic (OneTouch #150 ea 04/16/24 10/08/24 Unknown Verio test strips) blood-glucose meter (OneTouch #1 ea 04/16/24 10/08/24 Unknown Verio Reflect Meter) lancets 33 gauge (OneTouch Delica #150 ea 04/16/24 10/08/24 Unknown Plus Lancet) pen needle, diabetic 32 gauge x #100 ea 05/07/24 10/08/24 Unknown 5/32" (BD Ultra-Fine Rossy Pen Needle) sertraline 50 mg tablet 75 mg (1.5 x 50 mg) PO DAILY #135 05/14/24 10/13/24 Unknown tabs ferrous sulfate, dried 159 mg (45 159 mg PO Q2D 10/13/24 10/13/24 Unknown mg iron) tablet,extended release (iron ER) insulin NPH isoph U-100 human 100 100 unit subcut HS 10/13/24 10/13/24 Unknown unit/mL (3 mL) subcutaneous pen (Novolin N FlexPen) levothyroxine 25 mcg tablet 75 mcg PO QAM 10/13/24 10/13/24 Unknown loratadine 10 mg tablet (Claritin) 10 mg PO QAM 10/13/24 10/13/24 Unknown metformin 500 mg tablet,extended 500 mg PO QID 10/13/24 10/13/24 Unknown release 24 hr Past Medical History Medical History (Updated 10/13/24 @ 11:45 by Odilia Ma PA-C) Anxiety and depression Bronchitis hx - pt denies any issues at this time Gestational diabetes Oral/IDDM History of blood transfusion Post - 2020 History of migraine History of varicella Hypothyroidism Kidney stones hx - passed on own Low amniotic fluid hx Paronychia hx Placenta previa hx PONV (postoperative nausea and vomiting) Past Family History Family History Grandmother (Maternal) Diabetes Father Hypertension Mother Hypertension Gestational diabetes Thyroid disease Grandmother (Paternal) Cancer Grandfather (Paternal) Colorectal cancer Past Surgical History Surgical History (Updated 10/13/24 @ 11:45 by Odilia Ma PA-C) Delivery by section x2 History of fasciotomy Plantar - bilateral History of wisdom tooth extraction Social History Smoking Status: Never smoker Do You Dip or Chew Tobacco: No Hx Alcohol Use: No Hx Substance Use: No substance use type: does not use Lab Results Anesthesia Preop Results Results Anesthesia Widget: TSH 2.292 uIu/ml (0.300-4.500) 09/23/24
--- NOTE | 2024-10-20 17:41 | History & Physical Report ---
Date of Service October 20, 2024 Assessment & Plan (1) Previous delivery affecting , antepartum: Plan: IUP at 39 weeks for repeat C/S prodecure was reviewed with patient and and all questions answered to their satisfaction and are willing to proceed. History of Present Illness Primary Care Provider: JOSE DANIEL Prince Patient is a 34 yo female EDC 10/28/24 who presents at 39 weeks for repeat C/S. First DC/S was done for FTP, [place] [facility] [place] complicated by GDM on insulin &Hypothyroidism. testing has been reassuring. GBS-negative. Allergies Allergy/AdvReac Type Severity Reaction Status Date / Time sumatriptan [From Imitrex] AdvReac Intermediate Gastrointestinal Verified 10/14/24 13:21 Upset Home Medications Medication Instructions Recorded Confirmed Type 21-iron fu-folic acid 1 tab PO DAILY 03/29/24 10/20/24 History [ Complete] acetone (urine) test (Ketone Urine #50 ea 04/16/24 10/20/24 Rx Test strips) blood sugar diagnostic (OneTouch #150 ea 04/16/24 10/20/24 Rx Verio test strips) blood-glucose meter (OneTouch #1 ea 04/16/24 10/20/24 Rx Verio Reflect Meter) lancets 33 gauge (OneTouch Delica #150 ea 04/16/24 10/20/24 Rx Plus Lancet) pen needle, diabetic 32 gauge x #100 ea 05/07/24 10/20/24 Rx 5/32" (BD Ultra-Fine Rossy Pen Needle) sertraline 50 mg tablet 75 mg (1.5 x 50 mg) PO DAILY #135 05/14/24 10/20/24 Rx tabs ferrous sulfate, dried 159 mg (45 159 mg PO Q2D 10/13/24 10/20/24 History mg iron) tablet,extended release (iron ER) insulin NPH isoph U-100 human 100 100 unit subcut HS 10/13/24 10/20/24 History unit/mL (3 mL) subcutaneous pen (Novolin N FlexPen) levothyroxine 25 mcg tablet 75 mcg PO QAM 10/13/24 10/20/24 History loratadine 10 mg tablet (Claritin) 10 mg PO QAM 10/13/24 10/20/24 History metformin 500 mg tablet,extended 500 mg PO QID 10/13/24 10/20/24 History release 24 hr Patient History Medical History Anxiety and depression Bronchitis hx - pt denies any issues at this time Gestational diabetes Oral/IDDM History of blood transfusion Post - 2020 History of migraine History of varicella Hypothyroidism Kidney stones hx - passed on own Low amniotic fluid hx Paronychia hx Placenta previa hx PONV (postoperative nausea and vomiting) Surgical History Delivery by section x2 History of fasciotomy Plantar - bilateral History of wisdom tooth extraction Family History Grandmother (Maternal) Diabetes Father Hypertension Mother Hypertension Gestational diabetes Thyroid disease Grandmother (Paternal) Cancer Grandfather (Paternal) Colorectal cancer Social History Smoking Status: Never smoker Second Hand Exposure: No; Do You Dip or Chew Tobacco: No; Hx Alcohol Use: No Hx Substance Use: No Preferred Language: Kazakh Communication Ability: Effective Sprayer Operator Required: No Beliefs That Will Affect Care: None marital status: marital status details: Luigi (30) [phone] Current Living Situation: Family Current Living Situation Comment: lives with spouse, children, dogs current occupational status: employed current occupation: teacher[employer] Feels Safe at Home: Yes caffeine: No Dental Care, Regularly: Yes Physical Activity Frequency: 3-4 Times per Week Seatbelt Use: always Sunscreen Use: Yes Assistive Devices: Contacts and Glasses Review of Systems All systems reviewed & are unremarkable except as noted in HPI & below Physical Exam Constitutional: WD/WN, vitals as above Psychiatric: A+Ox3, euthymic affect Genitourinary: OB Exam Abdomen: + fundal height (term) and + vertex OB Exam Monitor Tracing: + external FHT monitor used, + external uterine monitor used, + category I and + normal FHT variability Coding Level of Care Code 77756 INT INP/OBS CARE 1/40MIN Diagnoses Previous delivery affecting , antepartum O34.219
[2024-10-21] MEDS ORDERED: SODIUM CHLORIDE 0.9% 100 ML IV PRN (06:02)
[2024-10-21] MEDS: LACTATED RINGER'S 1,000 ML IV SCH ×3 (06:15→09:56)
[2024-10-21] MEDS: ACETAMINOPHEN 500 MG TAB PO SCH (06:23)
[2024-10-21 06:40] LABS: Hematocrit (blood only) 35.1 % (37.0-47.0); Hemoglobin 11.3 g/dl (12.0-16.0); Mean Corpuscular Hemoglobin 27.4 pg (25.0-34.0); Mean Corpuscular Hgb Conc 32.2 g/dL (32.0-36.0); Mean Corpuscular Volume 85.2 fL (80.0-100.0); Mean Platelet Volume 9.7 fL (9.4-12.4); Nucleated RBC # (auto) 0.02 K/uL (0.00-0.12); Nucleated RBC % (auto) 0.2 %; Platelet Count 182 K/uL (130-400); RDW Coefficient of Variation 17.6 % (11.5-14.5); RDW Standard Deviation 53.4 fL (36.4-46.3); Red Blood Count 4.12 M/uL (4.20-5.40); White Blood Count 10.22 K/ul (4.8-10.8)
--- NOTE | 2024-10-21 07:21 | History & Physical Bridge Note ---
Date of Service October 21, 2024 History & Physical Bridge Note I have examined the patient, reviewed the History & Physical and in the interval since the performance of the History & Physical I have noted the following changes of clinical significance: no changes noted
[2024-10-21] MEDS ORDERED: MoRPHine SULFATE PF 1 MG/ML 10 ML AMP/VIAL ONE (07:28)
[2024-10-21] MEDS ORDERED: ONDANSETRON INJ 2 MG/ML 2 ML VIAL ONE (07:30)
[2024-10-21] MEDS ORDERED: PHENYLEPHRINE HCL 25 MG/250 ML NSS IV ONE (07:30)
[2024-10-21] MEDS ORDERED: OXYTOCIN 10 UNITS/ML VIAL ONE ×4 (07:30→08:35)
[2024-10-21] MEDS: ceFAZolin 3000MG 3,000 MG/72.5 ML BAG IV SCH (07:35)
[2024-10-21] MEDS ORDERED: OXYTOCIN 10 UNITS/ML 10ML VIAL IM ONE (08:29)
[2024-10-21] MEDS ORDERED: NALOXONE HCL 0.08 MG in SYRINGE 1.8 ML IV PRN (08:44)
[2024-10-21] MEDS ORDERED: diphenhydrAMINE 50 MG/ML VIAL IV PRN ×2 (08:44→09:23)
[2024-10-21] MEDS ORDERED: ePHEDrine sulfate 50 MG/ML AMP IV PRN (08:44)
[2024-10-21] MEDS ORDERED: PROMETHAZINE 6.25 MG/50.25 ML BAG IV PRN (08:44)
[2024-10-21] MEDS ORDERED: HYDROmorphone INJ 0.5 MG/0.5 ML SYR IV PRN ×2 (08:44→09:23)
[2024-10-21] MEDS ORDERED: MEPERIDINE HCL 25 MG/ML CARP/VIAL IV PRN (08:44)
[2024-10-21] MEDS ORDERED: NALOXONE HCL 0.4 MG/1 ML VIAL/CARP IV PRN (08:44)
[2024-10-21] MEDS ORDERED: NALOXONE HCL 1 MG in SODIUM CHLORIDE 0.9% 1,000 ML IV PRN (08:44)
[2024-10-21] MEDS ORDERED: LACTATED RINGER'S 500 ML IV PRN (08:44)
[2024-10-21] MEDS ORDERED: oxyCODONE HCL IR 5 MG TAB (IMMEDIATE RELEASE) PO PRN ×2 (08:44→09:23)
[2024-10-21] MEDS ORDERED: MoRPHine SULFATE 2 MG/ML CARP IV PRN (08:44)
[2024-10-21] MEDS ORDERED: ONDANSETRON INJ 2 MG/ML 2 ML VIAL IV PRN ×2 (08:44→09:23)
[2024-10-21] MEDS ORDERED: NALBUPHINE HCL INJ 10 MG/ML AMP IV PRN (08:44)
[2024-10-21] MEDS ORDERED: NO NARCOTICS OR SEDATIVES SCH (08:45)
[2024-10-21] MEDS ORDERED: DC INTRASPINAL MORPHINE SCH (08:45)
--- NOTE | 2024-10-21 08:52 | Post Operative Brief Note ---
Immediate Post Op Note Date of Surgery October 21, 2024 Pre & Post Diagnosis Operation Date: 10/21/24 07:30 Pre-Op Diagnosis: 1. Prior Section x2 2. For Repeat Post-Op Diagnosis: Same I identified the patient and participated in the time-out.: Yes Procedure Operation Date: 10/21/24 07:30 Actual Procedures p Section in LD; Repeat Lower Uterine Transverse Section for the of a live girl infant at 0814. - Anh Anderson MD, FACOG Surgeon Anh Anderson MD, FACOG Care Transport Nurse Sara Obregon MD Quantitative Blood Loss (QBL) 678 Findings Consistent with Post-Op Diagnosis Specimens Specimen Description: 1. Placenta: Hold 2. Cord Blood Obtained Drains Wiley Catheter (Wiley catheter inserted without difficulty. Patent and draining clear yellow urine. ) Anesthesia Type Spinal Complications none Disposition Accompanied Patient To Recovery: Yes
[2024-10-21] MEDS: OXYTOCIN 20 UNITS/LR 1,002 ML IV SCH (09:00)
--- NOTE | 2024-10-21 09:04 | Anesthesiology Progress Note ---
Date of Service October 21, 2024 Anesthesia Post Procedure Vital Signs Vital Signs: Temp Pulse Resp BP Pulse Ox 10/21/24 09:01 85 94 10/21/24 09:00 95 10/21/24 09:00 80 10/21/24 09:00 78 129/58 L 10/21/24 07:19 79 138/75 10/21/24 06:00 76 138/74 10/21/24 05:49 37.0 C 76 18 140/79 Transfer of Care Handoff Completed per policy Notes Mental Status: alert / awake / arousable Nausea / Vomiting: adequately controlled Pain: adequately controlled Airway Patency, RR, SpO2: stable & adequate BP & HR: stable & adequate Hydration State: stable & adequate Neuraxial Anesthesia: was administered and sensory block is resolving Anesthetic Complications: no major complications apparent and Pt Satisfied with anesthetic care
[2024-10-21] MEDS ORDERED: MAGNESIUM HYDROXIDE SUSP 30 ML UDC PO PRN ×2 (09:19→09:23)
[2024-10-21] MEDS ORDERED: HYDROCORTISONE ACETATE 25 MG SUPP PR PRN ×2 (09:19→09:23)
[2024-10-21] MEDS ORDERED: SENNA 8.6 MG TAB PO PRN ×2 (09:19→09:23)
[2024-10-21] MEDS ORDERED: BENZOCAINE 20% SPRY 85 APPLN/85 GM CAN EXT PRN ×2 (09:19→09:23)
[2024-10-21] MEDS ORDERED: CALCIUM CARBONATE 500 MG CHEWABLE TAB PO PRN ×2 (09:19→09:23)
[2024-10-21] MEDS ORDERED: PROMETHAZINE 12.5 MG/50.5 ML BAG IV PRN (09:23)
[2024-10-21] MEDS ORDERED: KETOROLAC 30 MG/ML VIAL IV SCH (09:23)
[2024-10-21] MEDS ORDERED: LEVOTHYROXINE SODIUM 75 MCG TABLET PO SCH (09:23)
[2024-10-21] MEDS ORDERED: diphenhydrAMINE Capsule 25 MG CAP PO PRN (09:23)
[2024-10-21] MEDS ORDERED: LACTATED RINGER'S 1,000 ML IV SCH (09:23)
--- NOTE | 2024-10-21 09:37 | Operative Report ---
Post Operative Report Pre & Post Diagnosis Operation Date: 10/21/24 07:30 Pre-Op Diagnosis: 1. Prior Section x2 2. For Repeat Post-Op Diagnosis: Same I identified the patient and participated in the time-out.: Yes Procedure Operation Date: 10/21/24 07:30 Actual Procedures p Section in LD; Repeat Lower Uterine Transverse Section for the of a live girl at 0814. - Anh Anderson MD, FACOG Surgeon Anh Anderson MD, FACOG Installation And Service Technician Sara Obregon MD Quantitative Blood Loss (QBL) 678 Findings Consistent with Post-Op Diagnosis Gravid uterus consistent with a term in size bilateral ovaries and fallopian tubes are grossly normal. Specimens Placenta to hold Drains Wiley catheter to straight drainage clear urine at the end of the case Anesthesia Type Spinal Complications none Disposition Accompanied Patient To Recovery: Yes Indications Intrauterine at 39-0/7 weeks for repeat section because of prior section x 2. also complicated by GDM on insulin and suspected LGA baby. Description of Procedure After the patient received adequate subarachnoid block she was prepped and draped in usual sterile fashion. Low transverse skin incision was made through her prior scar and carried the fascia with the same scalpel. The fascial incision was then extended with Jackson scissors the edges were grasped with Dorothy clamps and the underlying rectus muscle was bluntly sharply dissected off of the overlying fascia. The rectus muscles were bluntly divided on the midline with a hemostat. The underlying peritoneum was then entered with Metzenbaum scissors. The rectus muscles were then divided with stretching. The bladder blade was then placed in the abdomen and the bladder was taken down off of the lower uterine segment with Metzenbaum scissors and placed behind the bladder blade.. The uterine lower uterine segment was entered with a scalpel to the level of the membranes. It was then opened by stretching the incision in a cephalad and caudad direction. Membranes ruptured for clear fluid. The infant was delivered from the vertex presentation with assistance of moderate fundal pressure. After the head was delivered the rest of the delivered easily she was vigorous crying and moving all 4 limbs. Cord was clamped and cut and handed off to Dr. Gan who was in attendance his facility maintenance technician. After cord blood was obtained, the placenta was manually removed. The uterus was exteriorized and covered with a clean lap sponge. Some retained membranes were then used removed and the uterine cavity swept of any remaining debris. The uterus was then closed in 2 layers in a running locking imbricating fashion bleeding was controlled with fundal massage and dilute Pitocin as well as 10 units of Pitocin into the fundus of the uterus. 2 bleeding sites along the uterine incision were secured with [id number] stitches of 0 Monocryl. At this point hemostasis was noted be excellent. There was no fluid or clot in the posterior cul-de-sac. The uterus was then placed back inside the abdominal cavity. The uterine incision was examined once more and continue to have excellent hemostasis. The gutters were explored and found to be free of any clot or fluid. The rectus muscles were under tension and could not be reapproximated on the midline. The fascia was closed in a running fashion with 0 Vicryl. After irrigating the subcutaneous layer, the skin edges were reapproximated using a subcuticular stitch of 4-0 Vicryl. Urine was clear at the end of the case mother and were doing well after delivery. I attest to the content of the Intraoperative Record and any orders documented therein. Any exceptions are noted below. OB Procedure Charges 24383
[2024-10-21] MEDS: SERTRALINE HCL 50 MG TABLET PO SCH (09:40)
[2024-10-21] MEDS: KETOROLAC 30 MG/ML VIAL IV SCH (09:45)
[2024-10-21] MEDS: CITRIC ACID/SODIUM CITRATE 15 ML UDC PO SCH (09:53)
[2024-10-21] MEDS: MoRPHine SULFATE PF 1 MG/ML 10 ML AMP/VIAL INT SPINAL ONE (09:55)
[2024-10-21] MEDS: DIPHTHER/TETAN/PERTUS Vaccine (Tdap, Adol/Adult) 0.5mL IM ONE (09:56)
[2024-10-21] MEDS: SODIUM CHLORIDE 0.9% 1,000 ML IV SCH (09:56)
[2024-10-21] MEDS: miSOPROStoL 200 MCG TAB ONE (10:01)
[2024-10-21] MEDS: miSOPROStoL 200 MCG TAB PR ONE (10:02)
[2024-10-21] MEDS: METHYLERGONOVINE MALEATE 0.2 MG/ML AMP ONE (10:18)
[2024-10-21] MEDS: TRANEXAMIC ACID / 0.7% NACL 1,000 MG/100 ML BAG IV STA (10:44)
--- NOTE | 2024-10-21 11:01 | Communication Note ---
Date of Service: October 21, 2024 called to patient's room 2 hours after return to L&D room for hemorrhage. 938 QBL noted. uterus swept of some clot and fundus became firm again methergine given IM- she already received 1000mcg rectally in the OR CURTIS placed with 120cc water placed in balloon after ensuring it was against and not in the cervix. suction at 80mmHg. blood noted in CURTIS tubing. w will give TXA now and continue to monitor bleeding in L&D
[2024-10-21 12:57] LABS: Hematocrit (blood only) 34.3 % (37.0-47.0); Hemoglobin 10.7 g/dl (12.0-16.0)
[2024-10-21] MEDS ORDERED: SIMETHICONE 80 MG CHEW PO SCH (13:00)
[2024-10-21] MEDS: SIMETHICONE 80 MG CHEW PO SCH (14:09)
[2024-10-21] MEDS ORDERED: ACETAMINOPHEN 325 MG TAB PO SCH (14:45)
[2024-10-21] MEDS: CARBOPROST TROMETHAMINE 250 MCG/ML AMPUL ONE (17:39)
[2024-10-21] MEDS: ACETAMINOPHEN 325 MG TAB PO SCH (17:40)
[2024-10-21] MEDS: TRANEXAMIC ACID / 0.7% NACL 1000MG/100ML BAG IV ONE (17:50)
--- NOTE | 2024-10-21 19:38 | Communication Note ---
Date of Service: October 21, 2024 no bleeding around the CURTIS and now only darkblood in the tubing. 120 cc water removed from balloon - after 2 hours, minimal lochia noted will continue to observe in L&D for another hour and then to the floor if bleeding is controlled
[2024-10-21] MEDS ORDERED: DOCUSATE SODIUM 100 MG CAP PO SCH (21:00)
[2024-10-21] MEDS: DOCUSATE SODIUM 100 MG CAP PO SCH (21:26)
[2024-10-21] MEDS: SERTRALINE HCL 50 MG TABLET PO STA (21:50)
[2024-10-22] MEDS ORDERED: miSOPROStoL 200 MCG TAB ONE (00:21)
[2024-10-22] MEDS ORDERED: ONDANSETRON INJ 2 MG/ML 2 ML VIAL IV PRN (02:44)
[2024-10-22] MEDS ORDERED: diphenhydrAMINE 50 MG/ML VIAL IV PRN (02:44)
[2024-10-22] MEDS ORDERED: diphenhydrAMINE Capsule 25 MG CAP PO PRN (02:44)
[2024-10-22] MEDS ORDERED: PROMETHAZINE 12.5 MG/50.5 ML BAG IV PRN (02:44)
--- NOTE | 2024-10-22 05:47 | Obstetrical Progress Note ---
Date of Service October 22, 2024 Assessment & Plan (1) examination following delivery: (2) Insulin controlled gestational diabetes mellitus (GDM) during : (3) Obesity: (4) Hypothyroidism: Plan Pt is 34 yo post- day 1 s/p CS at 39w. Pt had PPH EBL 940mL and Svitlana placement. complicated by insulin controlled GDM, hypothyroidism, and obesity. Pt recovering well. - Recommend use of abdominal binder for reduction in pain and incisional support - Encourage ambulation - Encourage breast feeding - Pain control with tylenol, ibuprofen, and Dilaudid - Anticipate DC 10/23 Admission and Anticipated Discharge Date Admission Date: October 21, 2024 Supervising Physician Co-Signing Physician Notes Resident Physician Supervision Note: I interviewed and examined the patient. Discussed with Dr. Romero and agree with findings and plan as documented in the note. Any exceptions or clarifications are listed here: [None] Documented By: Anh Anderson MD, FACOG Subjective Pt is 34 yo post- day 1 s/p CS at 39w. Pt had PPH EBL 940mL and Svitlana placement. Ambulation:In room Voiding:voiding normally Passing gas: yes BM: no Diet tolerance:regular diet Lochia:bloody, no clots Feeding type: breast, formula supplement Current pain level: 5 /10 improved with ibuprofen and Dilaudid Resting comfortably this morning in NAD. Denies PARADA, CP, SOB, N/V/D, LE pain/swelling. Review of Systems Review of Systems: As per HPI Physical Exam Constitutional: WD/WN, vitals as above Respiratory: normal respiratory effort, lungs clear to auscultation Cardiovascular: RRR, no murmur, no edema Gastrointestinal (Abdomen): normal bowel sounds, soft, nontender, no hepatosplenomegaly Uterine fundus firm and at 1-2 cm below level of umbilicus Skin: Lower abdominal incision is clean, dry and well approximated with mild subcutaneous opening at lateral right side of incision. Neurologic: PERRL, EOMI, accommodation nl, no face palsy, no dysarthria Moving all 4 extremities on command Psychiatric: A+Ox3, euthymic affect Results & Data Vital Signs (Past 12 Hours) Vital Signs Temp Pulse Pulse Resp BP BP Pulse Ox 10/22/24 03:02 16 97 10/22/24 03:02 36.5 C 67 16 136/79 97 10/22/24 01:23 16 96 10/21/24 23:40 16 95 10/21/24 23:40 36.7 C 79 16 114/72 95 10/21/24 21:15 16 95 10/21/24 21:15 36.5 C 83 18 127/85 95 10/21/24 21:05 82 94 10/21/24 21:00 85 95 10/21/24 20:55 89 126/69 97 10/21/24 20:50 86 94 10/21/24 20:45 87 95 10/21/24 20:40 95 10/21/24 20:40 84 10/21/24 20:40 86 119/67 10/21/24 20:35 78 94 10/21/24 20:30 93 H 96 10/21/24 20:25 89 123/67 94 10/21/24 20:20 95 H 94 10/21/24 20:15 86 93 10/21/24 20:10 83 124/62 93 10/21/24 20:05 86 94 10/21/24 20:00 84 95 10/21/24 19:55 82 133/62 95 10/21/24 19:50 81 95 10/21/24 19:45 87 96 10/21/24 19:40 82 134/59 L 95 10/21/24 19:35 85 95 10/21/24 19:30 82 96 10/21/24 19:26 86 142/70 H 10/21/24 19:25 84 95 10/21/24 19:20 82 96 10/21/24 19:15 76 94 10/21/24 19:10 87 122/61 96 10/21/24 19:05 80 95 10/21/24 19:00 77 95 10/21/24 18:55 36.8 C 73 18 122/59 L 94 10/21/24 18:50 79 97 10/21/24 18:45 79 94 10/21/24 18:40 75 117/56 L 94 10/21/24 18:35 82 95 10/21/24 18:30 83 96 10/21/24 18:25 81 125/60 94 10/21/24 18:20 80 94 10/21/24 18:15 79 96 10/21/24 18:10 76 118/59 L 95 10/21/24 18:05 89 97 10/21/24 18:00 79 96 10/21/24 17:56 90 120/59 L 10/21/24 17:55 94 H 97 10/21/24 17:50 80 96 10/21/24 17:45 87 95 O2 Del Method 10/22/24 03:02 10/22/24 03:02 Room Air 10/22/24 01:23 10/21/24 23:40 10/21/24 23:40 Room Air 10/21/24 21:15 10/21/24 21:15 Room Air 10/21/24 21:05 10/21/24 21:00 10/21/24 20:55 10/21/24 20:50 10/21/24 20:45 10/21/24 20:40 10/21/24 20:40 10/21/24 20:40 10/21/24 20:35 10/21/24 20:30 10/21/24 20:25 10/21/24 20:20 10/21/24 20:15 10/21/24 20:10 10/21/24 20:05 10/21/24 20:00 10/21/24 19:55 10/21/24 19:50 10/21/24 19:45 10/21/24 19:40 10/21/24 19:35 10/21/24 19:30 10/21/24 19:26 10/21/24 19:25 10/21/24 19:20 10/21/24 19:15 10/21/24 19:10 10/21/24 19:05 10/21/24 19:00 10/21/24 18:55 10/21/24 18:50 10/21/24 18:45 10/21/24 18:40 10/21/24 18:35 10/21/24 18:30 10/21/24 18:25 10/21/24 18:20 10/21/24 18:15 10/21/24 18:10 10/21/24 18:05 10/21/24 18:00 10/21/24 17:56 10/21/24 17:55 10/21/24 17:50 10/21/24 17:45 Resident Activity Tracking Resident Involvement: Resident Care Provided Care Provided: Adult Hospital Medicine (3) Obesity Body mass index: BMI 33.0-33.9 Obesity classification: adult class 1 (BMI 30 - 34.9) Obesity type: due to excess calories Serious obesity comorbidity presence: with serious comorbidity Qualified Code(s): E66.09 - Other obesity due to excess calories; Z68.33 - Body mass index [BMI] 33.0-33.9, adult (4) Hypothyroidism Hypothyroidism type: unspecified Qualified Code(s): E03.9 - Hypothyroidism, unspecified
[2024-10-22 07:33] LABS: Basophils # (auto) 0.02 K/uL (0.00-0.20); Basophils % (auto) 0.2 %; Eosinophils # (auto) 0.09 K/uL (0.00-0.50); Hematocrit (blood only) 26.4 % (37.0-47.0); Hemoglobin 8.3 g/dl (12.0-16.0); Immature Granulocytes # (auto) 0.14 K/uL (0.01-0.20); Immature Granulocytes % (auto) 1.5 %; Lymphocytes # (auto) 1.81 K/uL (1.20-3.40); Lymphocytes % (auto) 19.5 %; Mean Corpuscular Hemoglobin 27.6 pg (25.0-34.0); Mean Corpuscular Hgb Conc 31.4 g/dL (32.0-36.0); Mean Corpuscular Volume 87.7 fL (80.0-100.0); Mean Platelet Volume 9.7 fL (9.4-12.4); Monocytes # (auto) 0.71 K/uL (0.11-0.59); Monocytes % (auto) 7.6 %; Neutrophils # (auto) 6.52 K/uL (1.40-6.50); Neutrophils % (auto) 70.2 %; Platelet Count 159 K/uL (130-400); RDW Coefficient of Variation 18.1 % (11.5-14.5); Red Blood Count 3.01 M/uL (4.20-5.40); White Blood Count 9.29 K/ul (4.8-10.8)
[2024-10-22] MEDS ORDERED: FERROUS SULFATE 325 MG TAB PO SCH (08:00)
[2024-10-22] MEDS ORDERED: PRENATAL VITAMIN 1 TAB PO SCH (08:00)
[2024-10-22] MEDS ORDERED: KETOROLAC 30 MG/ML VIAL IV PRN ×2 (08:44→09:19)
[2024-10-22] MEDS ORDERED: IBUPROFEN 600 MG TAB PO SCH (08:45)
[2024-10-22] MEDS ORDERED: SERTRALINE HCL 50 MG TABLET PO SCH (09:00)
[2024-10-22] MEDS: PRENATAL VITAMIN 1 TAB PO SCH (09:12)
[2024-10-22] MEDS: FERROUS SULFATE 325 MG TAB PO SCH (09:13)
[2024-10-22] MEDS: SERTRALINE HCL 50 MG TABLET PO SCH ×2 (09:13→21:34)
[2024-10-22] MEDS: IBUPROFEN 600 MG TAB PO SCH (09:13)
[2024-10-22] MEDS: LEVOTHYROXINE SODIUM 75 MCG TABLET PO ONE (09:13)
[2024-10-22] MEDS: LORATADINE 10 MG TAB PO SCH (10:53)
[2024-10-22] MEDS: oxyCODONE HCL IR 5 MG TAB (IMMEDIATE RELEASE) PO PRN (15:28)
[2024-10-22] MEDS: HYDROmorphone INJ 0.5 MG/0.5 ML SYR IV PRN (18:23)
[2024-10-22] MEDS ORDERED: bisacodyL 5 MG TABEC PO SCH (20:00)
[2024-10-22] MEDS: bisacodyL 5 MG TABEC PO SCH (20:34)
[2024-10-23 00:19] VITALS: RESP 16; TEMP 97.9; O2SAT 96
--- NOTE | 2024-10-23 05:55 | Obstetrical Progress Note ---
Date of Service October 23, 2024 Assessment & Plan (1) examination following delivery: (2) Insulin controlled gestational diabetes mellitus (GDM) during : (3) Obesity: (4) Hypothyroidism: Plan Pt is 34 yo post- day 1 s/p CS at 39w. Pt had PPH EBL 940mL and Svitlana placement. complicated by insulin controlled GDM, hypothyroidism, and obesity. Pt recovering well. Incision continues with subcutaneous opening at lateral right aspect, but no concerns for healing at this time. - Recommend use of abdominal binder for reduction in pain and incisional support - Encourage ambulation, using abdominal binder as needed - Encourage breast feeding - Pain control with tylenol, ibuprofen, and oxycodone - Anticipate DC today Admission and Anticipated Discharge Date Admission Date: October 21, 2024 Supervising Physician Co-Signing Physician Notes Resident Physician Supervision Note: I interviewed and examined the patient. Discussed with Dr. Romero and agree with findings and plan as documented in the note. Any exceptions or clarifications are listed here: POD2 s/p rLTCS, doing well. VSS, exam benign. Incision w/ small supericial opening w/o drainage, reapprox w/ steris. Ok for dc home Documented By: Veronica Santos MD Subjective Pt is 34 yo post- day 2 s/p CS at 39w. Ambulation:In room Voiding:voiding normally Passing gas: yes BM: yes Diet tolerance:regular diet Lochia:bloody, no clots Feeding type: breast, formula supplement Current pain level: 3-5 /10 improved with ibuprofen and oxycodone Resting comfortably this morning in NAD. Denies PARADA, CP, SOB, N/V/D, LE pain/swelling. Review of Systems Review of Systems: As per HPI Physical Exam Constitutional: WD/WN, vitals as above Respiratory: normal respiratory effort, lungs clear to auscultation Cardiovascular: RRR, no murmur, no edema Gastrointestinal (Abdomen): normal bowel sounds, soft, nontender, no hepatosplenomegaly Uterine fundus is firm and 2 cm below level of umbilicus Skin: Lower uterine incision is clean, dry and well approximated. small amount of clear drainage at lateral right side Neurologic: PERRL, EOMI, accommodation nl, no face palsy, no dysarthria Psychiatric: A+Ox3, euthymic affect Results & Data Vital Signs (Past 12 Hours) Vital Signs Temp Pulse Resp BP Pulse Ox O2 Del Method 10/23/24 00:05 36.6 C 82 16 138/78 96 Room Air 10/22/24 19:25 36.7 C 86 18 145/79 H 97 Room Air Resident Activity Tracking Resident Involvement: Resident Care Provided Care Provided: Adult Hospital Medicine (3) Obesity Body mass index: BMI 33.0-33.9 Obesity classification: adult class 1 (BMI 30 - 34.9) Obesity type: due to excess calories Serious obesity comorbidity presence: with serious comorbidity Qualified Code(s): E66.09 - Other obesity due to excess calories; Z68.33 - Body mass index [BMI] 33.0-33.9, adult (4) Hypothyroidism Hypothyroidism type: unspecified Qualified Code(s): E03.9 - Hypothyroidism, unspecified
[2024-10-23] MEDS: LEVOTHYROXINE SODIUM 75 MCG TABLET PO SCH (06:25)
[2024-10-23 06:32] LABS: Hematocrit (blood only) 25.9 % (37.0-47.0); Hemoglobin 8.2 g/dl (12.0-16.0)
[2024-10-23] MEDS ORDERED: IBUPROFEN 600 MG TAB PO PRN (08:44)
[2024-10-23] MEDS ORDERED: bisacodyL 10 MG SUPP PR PRN ×2 (08:44→09:19)
[2024-10-23 08:52] VITALS: BP 127/78; PULSE 80
[2024-10-23] MEDS: IBUPROFEN 600 MG TAB PO PRN (09:28)
[2024-10-23] MEDS ORDERED: ACETAMINOPHEN 325 MG TAB PO PRN ×2 (14:44→15:19)
--- NOTE | 2024-10-26 12:59 | Discharge Summary ---
Date of Service October 26, 2024 Admission HPI Per Admitting Provider Patient is a 34 yo female EDC [birth year] who presents at 39 weeks for repeat C/S. First DC/S was done for FTP, repeat LTCS was done for previa at 36 weeks at [facility] [place]. complicated by GDM on insulin &Hypothyroidism. testing has been reassuring. GBS-negative. Admission Exam (Per Admitting) Constitutional WD/WN, vitals as above Psychiatric A+Ox3, euthymic affect Genitourinary OB Exam Abdomen: + fundal height (term) and + vertex OB Exam Monitor Tracing: + external FHT monitor used, + external uterine monitor used, + category I and + normal FHT variability Discharge Data Consultations 10/21/24 06:11 Consult Anesthesiology Stat Procedures Performed Operation Date: 10/21/24 07:30 Actual Procedures p Section in LD; Repeat Lower Uterine Transverse Section for the of a live girl at 0814. - Anh Anderson MD, FACOG Hospital Course (1) examination following delivery: (2) Insulin controlled gestational diabetes mellitus (GDM) during : (3) Obesity: (4) Hypothyroidism: Plan Pt is 34 yo post- day 1 s/p CS at 39w. Pt had PPH EBL 940mL and Svitlana placement. complicated by insulin controlled GDM, hypothyroidism, and obesity. Pt recovering well. Incision continues with subcutaneous opening at lateral right aspect, but no concerns for healing at this time. - Recommend use of abdominal binder for reduction in pain and incisional support - Encourage ambulation, using abdominal binder as needed - Encourage breast feeding - Pain control with tylenol, ibuprofen, and oxycodone - Anticipate DC today Discharge Plan Discharge Items Patient Disposition: Home - Self-Care Reason For Visit: History of Section Discharge Diagnosis: Post Activity: Per Instructions section Non-emergency contact: Bug Trimmer Call non-emergency contact if: your symptoms worsen Follow-up/Referrals: Odette Gutierrez CRNP [Primary Care Provider] - Diet: Regular OB Addtl Attending Provider Instructions: ACTIVITY RECOMMENDATIONS: * Gradual return to full activity over the next 2-3 weeks. * No lifting - nothing heavier than baby over the next 2-3 weeks. * Do not engage in vigorous exercise, sexual activity or sports until cleared by your physician. * Do not drive or operate any motorized equipment until cleared by your physician. * You may shower/bathe daily. MEDICATIONS: For discomfort or pain, you may use Acetaminophen (Tylenol), Ibuprofen (Advil), or Naproxen (Aleve) following the package directions. For constipation you may use Colace following the package directions. BREAST CARE: If you are not breast feeding: * Wear a supportive bra 24 hours a day for one to two weeks. * Avoid stimulating your breasts and nipples as much as possible during the first few weeks after delivery. * When taking a shower, have the warm water hit your back, not breasts. * When your breasts feel full, apply ice packs. Usually three to four times a day helps ease the discomfort. * Take a mild pain medication (Tylenol / Motrin) when you are uncomfortable. If breast feeding: * Use breast milk to lubricate nipples. Lansinoh cream may be used for sore nipples. You do not need to remove cream prior to breast feeding. If using a different brand of cream, check the label for directions regarding removal of cream prior to nursing. * Wear a supportive bra. * If having problems with breasts or breast feeding, call a informatics consultant or your health care provider. SPECIAL CARE INSTRUCTIONS: When you are discharged from the hospital, it is important for you to follow the instructions listed below: * During the first week at home, you should be able to care for yourself and your baby. In addition, the usual light household activities are encouraged. * Limit your activities to the way you feel. Do not try to clean the house or move furniture. Be sensible. * If you actively engage in sports and have done so up until the time of your delivery, you may resume these activities as soon as you feel able. This may take up to one month or even longer. Use good judgment. * Continue to take your vitamins for at least six weeks after the of your baby. * Your diet need not be limited unless you were on a special diet before your delivery. Breast-feeding mothers need around 2500 calories per day and at least 64-80 ounces of fluid per day (8 to 10 glasses). * You should eat foods from the four major food groups. Crash diets or fad diets are to be avoided. Eating lean meats, fresh fruits and vegetables, low-fat dairy products, high fiber foods and a regular exercise program, will help you get back to your pre- weight without putting your health at risk. * Constipation is sometimes a problem after delivery. Take a mild laxative as needed. If breast feeding, Milk of Magnesia is acceptable to use. You may use a suppository or Fleets enema. * A daily shower or tub bath is suggested. Wash incision daily with warm soapy water and pat dry. It doesn't need to be covered unless drainage is present. * A bloody vaginal discharge will usually continue until around four weeks . A small amount of bleeding may continue for as long as six weeks. Vaginal discharge changes from the bright red bleeding after delivery to pink then brownish and finally yellowish-pink before becoming white and disappearing. * Bleeding may increase with activity. Your first period may come in 4-8 weeks. If you are breast feeding, your period may be delayed even longer. * [place] (sex) can begin whenever both you and your partner feel comfortable and do not have any form of genital infection. It is recommended that you wait at least six weeks for internal and external healing to occur. If you have questions, please talk to your health care practitioner. A condom should be used to prevent infection and . * Foreplay, gentle intercourse and lubrication is very important the first several times to prevent pain. A water-based lubricant such as K-Y jelly or Astroglide may be used. * If you have RH negative blood and your baby is RH positive, you will receive RHOGAM by injection prior to discharge. The nurse will give you a card to keep with you that has the date and place that you received RHOGAM after delivery. * During your care, you had a Rubella screen done to check for the presence of rubella antibodies in your blood. If your test was negative, you will receive a Rubella vaccine prior to discharge. This vaccine may cause a fever, soreness at the injection site and flu-like symptoms. If these symptoms persist, notify your health care practitioner. is not advised for one month after a Rubella vaccine. * Verbalizes understanding of car seat law as reviewed with patient nursing. * Car Seat hand-out given and reviewed with patient by nursing. * Shaken baby information reviewed with patient by nursing. Call you doctor if: * Heavy bleeding (saturating several pads an hour) or passing clots the size of your fist. * A fever >101 degrees F (38.3 degrees C) on two occasions four hours apart and/or chills. * Unusual pain in the pelvic or vaginal areas. * Call the doctor for any increased redness, drainage or swelling around the incision and any pain unrelieved by prescribed pain medication. * "Baby Blues" lasting longer than two weeks. If you have any questions or concerns, call your health care practitioner at . FOLLOW UP VISIT: * Please call the office at to schedule a 6 week examination. It is important you keep this appointment. It is important for you to make arrangements for either yearly or twice yearly check-ups thereafter. Pending Studies at Discharge: No Stand-Alone Forms: [facility], Smoking Cessation Medications and DC Order Prescriptions: New oxycodone 5 mg Tablet 5 - 10 mg PO Q3H PRN (Reason: pain) Qty: 10 0RF Continued sertraline 50 mg tablet 75 mg PO DAILY Qty: 135 3RF Rx Instructions: pt aware dose change 21-iron fu-folic acid [ Complete] 1 tab PO DAILY loratadine [Claritin] 10 mg Tablet 10 mg PO QAM iron 159 mg (45 mg iron) Tablet Extended Release 159 mg PO Q2D levothyroxine 25 mcg tablet 75 mcg PO QAM Discontinued (DME) Ketone Urine Test Strip See Rx Instructions .MEDSUPPLY Qty: 50 6RF Rx Instructions: As directed to check ketones in urine once a day in the morning (DME) OneTouch Verio test strips Strip See Rx Instructions .MEDSUPPLY Qty: 150 6RF Rx Instructions: check blood sugars 4 times a day (DME) blood-glucose meter [OneTouch Verio Reflect Meter] [facility] [place] See Rx Instructions miscellaneous .MEDSUPPLY Qty: 1 0RF Rx Instructions: check 4 times a day (DME) lancets [OneTouch Delica Plus Lancet] 33 gauge misc See Rx Instructions .MEDSUPPLY Qty: 150 6RF Rx Instructions: As directed check blood sugars 4 times a day (DME) pen needle, diabetic [BD Ultra-Fine Rossy Pen Needle] 32 gauge x 5/32" needle See Rx Instructions miscellaneous .MEDSUPPLY Qty: 100 3RF Rx Instructions: use one per day with insulin injection metformin 500 mg tablet extended release 24 hr 500 mg PO QID Rx Instructions: Take one tablet a day for a week; increase to 2 tablets a day for a week; then increase to 3 tablets a day. Novolin N FlexPen 100 unit/mL (3 mL) insulin pen 100 unit subcut HS Rx Instructions: Inject 68 units at bed time. Increase as needed. TDD up to 100 units Discharge Orders: Discharge Order (Routine); Ordered 10/23/24 Ordered By: Magaly Anguiano/Other Patient Handouts: DVT in , Understanding Depression Admission Data Admit Date/Time: 10/21/24 05:29 Attending Provider: Anh Anderson Admit Provider: Anh Anderson Primary Care Provider: Odette Gutierrez Other Providers: Veronica Santos; Magaly Romero Other Interventions: Discharge Summary Assessment (RN) Last Done: 10/23/24 09:02 Supervising Physician Co-Signing Physician Notes Resident Physician Supervision Note: I interviewed and examined the patient. Discussed with Dr. Romero and agree with findings and plan as documented in the note. Any exceptions or clarifications are listed here: POD2 s/p rLTCS, doing well. VSS, exam benign. Incision w/ small supericial opening w/o drainage, reapprox w/ steris. Ok for dc home Documented By: Veronica Santos MD Coding Level of Care Code 88094 IN/OBS DISCH 30 MIN/LESS Diagnoses examination following delivery Z39.2 Insulin controlled gestational diabetes mellitus (GDM) during O24.414 Class 1 obesity due to excess calories with serious comorbidity and body mass index (BMI) of 33.0 to 33.9 in adult E66.09; Z68.33 Obesity type: due to excess calories Obesity classification: adult class 1 (BMI 30 - 34.9) Serious obesity comorbidity presence: with serious comorbidity Body mass index: BMI 33.0-33.9 Hypothyroidism, unspecified type E03.9 Hypothyroidism type: unspecified
== END 2024-10-23 12:00 | disposition home or self-care (01) | DRG 787 ==
LOC: 4S1 05:29 → EDSTATUS 07:30 → 4E2 21:26
DX: O72.1 Other immediate postpartum hemorrhage; E03.9 Hypothyroidism, unspecified; Z79.890 Hormone replacement therapy; Z37.0 Single live birth; O24.414 Gestational diabetes mellitus in pregnancy, insulin controlled; O34.211 Maternal care for low transverse scar from previous cesarean delivery; O99.344 Other mental disorders complicating childbirth; F41.9 Anxiety disorder, unspecified; F32.A Depression, unspecified; Z79.899 Other long term (current) drug therapy; E66.9 Obesity, unspecified; Z3A.39 39 weeks gestation of pregnancy; Z88.8 Allergy status to other drugs, medicaments and biological substances; Z87.59 Personal history of other complications of pregnancy, childbirth and the puerperium; Z68.42 Body mass index [BMI] 45.0-49.9, adult; O99.283 Endocrine, nutritional and metabolic diseases complicating pregnancy, third trimester; O99.214 Obesity complicating childbirth; Z79.4 Long term (current) use of insulin